=== PATIENT | male | born 1955 | race Caucasian/White ===

== ENCOUNTER 2016-11-13 15:35 | Emergency (ER) | payer OTHER ==
[2016-11-13 15:46] LABS: EOSINOPHIL (%) 4.4 % (0-5); EOSINOPHIL COUNT 0.4 K/uL (0-0.3); HEMATOCRIT 35.4 % (38.0-50.0); IMMATURE GRANULOCYTE (%) 0.3 % (0.0-0.7); INSTRUMENT ABS NEUTROPHIL CT 7.1 K/uL; LYMPHOCYTE COUNT 1.2 K/uL (1.0-2.8); MCH 32.8 PG (29.0-34.0); MCHC 34.5 G/DL (30.0-36.0); MCV 95.2 FL (86-99); MEAN PLAT.VOLUME 9.9 uM^3 (9.0-12.4); MONOCYTE (%) 5.7 % (3-12); MONOCYTE COUNT 0.5 K/uL (0-0.8); NEUTROPHIL COUNT 7.1 K/uL (1.8-6.4); PLATELET COUNT 201 K/uL (156-360); RBC DIS.WIDTH-CV 11.9 % (11.8-14.6); RBC DIS.WIDTH-SD 41.5 % (39-53); RED BLOOD COUNT 3.72 M/uL (4.00-5.50); WHITE BLOOD COUNT 9.3 K/uL (4.1-10.2)
[2016-11-13 16:01] LABS: AMYLASE 37 IU/L (1-118)
[2016-11-13 16:02] LABS: CHLORIDE 104 mEq/L (99-109); POTASSIUM 4.6 mEq/L (3.7-5.4); SODIUM 137 mEq/L (136-147)
[2016-11-13 16:03] LABS: GLUCOSE 77 mg/dL (70-99)
[2016-11-13 16:05] LABS: ANION GAP 12 MEQ/L (2-14)
[2016-11-13 16:06] LABS: SERUM ETHYL ALCOHOL < 10 mg/dL
[2016-11-13 16:08] LABS: UREA NITROGEN (BUN) 36 mg/dL (9-23)
[2016-11-13 16:10] LABS: LIPASE 10 U/L (1.0-51.0)
[2016-11-13 16:14] LABS: GFR ESTIMATE (CALCULATED) 36 mL/min/
[2016-11-13 16:36] VITALS: BP 143/58
[2016-11-13 18:03] LABS: POINT-OF-CARE METER ID UU13113702
[2016-11-13 19:10] LABS: POINT-OF-CARE METER ID UU13113702
[2016-11-13] MEDS ORDERED: PERCOCET 5/31 TABLET PO (19:27)
== END 2016-11-13 20:09 | disposition home or self-care (01) ==
LOC: TRA 15:35
PROVIDERS: Emergency Medicine
DX: S02.113A Unspecified occipital condyle fracture, initial encounter for closed fracture (principal); S22.31XA Fracture of one rib, right side, initial encounter for closed fracture; S00.01XA Abrasion of scalp, initial encounter; V48.5XXA Car driver injured in noncollision transport accident in traffic accident, initial encounter; E11.649 Type 2 diabetes mellitus with hypoglycemia without coma; R20.2 Paresthesia of skin
CPT/HCPCS: 70450; 71010; 71250; 72125; 72128; 72131; 72170; 74176; 80048; 81003; 82150; 82948; 83690; 85025; 86850; 86900; 86901; 99281; 99285; G0480; J1885

== ENCOUNTER 2018-01-23 17:36 | Emergency (ER) | payer BC ==
[~2018-01-23] VITALS: Ht 167.6 cm; Wt 98.2 kg
[~2018-01-23 17:36] MED LIST: PERCOCET 5/31 TABLET PO
[2018-01-23 18:31] LABS: BASOPHIL (%) 0.2 % (0-1); EOSINOPHIL (%) 5.8 % (0-5); EOSINOPHIL COUNT 0.8 K/uL (0-0.3); HEMATOCRIT 32.2 % (38.0-50.0); HEMOGLOBIN 11.6 G/DL (12.5-16.6); IMMATURE GRANULOCYTE (%) 0.3 % (0.0-0.7); LYMPHOCYTE (%) 7.9 % (15-42); LYMPHOCYTE COUNT 1.1 K/uL (1.0-2.8); MCH 34.8 PG (29.0-34.0); MCV 96.7 FL (86-99); MONOCYTE (%) 4.4 % (3-12); MONOCYTE COUNT 0.6 K/uL (0-0.8); NEUTROPHIL (%) 81.4 % (45-76); NEUTROPHIL COUNT 11.4 K/uL (1.8-6.4); PLATELET COUNT 161 K/uL (156-360); RBC DIS.WIDTH-CV 11.8 % (11.8-14.6); RBC DIS.WIDTH-SD 41.4 % (39-53); RED BLOOD COUNT 3.33 M/uL (4.00-5.50)
[2018-01-23 18:41] LABS: ALBUMIN 3.7 g/dL (3.2-4.8); CHLORIDE 104 mEq/L (99-109); SODIUM 137 mEq/L (136-147)
[2018-01-23 18:44] LABS: GLUCOSE 319 mg/dL (70-99); TOTAL PROTEIN 5.9 g/dL (6.4-8.3)
[2018-01-23 18:46] LABS: TOTAL BILIRUBIN 0.6 mg/dL (0.0-1.0)
[2018-01-23 18:47] LABS: ALKALINE PHOSPHATASE 93 IU/L (3-129); CREATININE 1.9 mg/dL (0.6-1.3); GFR ESTIMATE (CALCULATED) 38 mL/min/ (58.99-99999)
[2018-01-23 18:48] LABS: UREA NITROGEN (BUN) 36 mg/dL (9-23)
[2018-01-23 18:49] LABS: AST (GOT) 27 IU/L (2-34)
[2018-01-23 18:50] LABS: ALT (GPT) 31 IU/L (3-49)
[2018-01-23 18:51] LABS: LIPASE 120 U/L (1.0-51.0)
[2018-01-23] MEDS ORDERED: ZOFRAN4 MG PO (18:51)
[2018-01-23 19:49] VITALS: BP 186/66
[2018-01-23 20:17] LABS: APPEARANCE CLEAR ((CLEAR)); BILIRUBIN NEGATIVE; BLOOD NEGATIVE; COLOR YELLOW ((YELLOW)); GLUCOSE (STRIP) >=500; KETONES 5; LEUKOCYTES NEGATIVE; NITRITE NEGATIVE; PROTEIN (STRIP) 30; UCUL ADDED? NO; UROBILINOGEN 0.2 MG/DL (0.2-1.0)
== END 2018-01-23 19:45 | disposition home or self-care (01) ==
LOC: EME 17:36
PROVIDERS: Emergency Medicine
DX: K52.9 Noninfective gastroenteritis and colitis, unspecified (principal); E87.2 Acidosis; Z86.73 Personal history of transient ischemic attack (TIA), and cerebral infarction without residual deficits
CPT/HCPCS: 80053; 81003; 83690; 85025; 99281; 99285; J7030